=== PATIENT | female | born 1965 | race African-American/Black ===

== ENCOUNTER 2018-08-13 19:18 | Inpatient (IN) | payer BC, MEDICARE, MEDICAID ==
[~2018-08-13] VITALS: Ht 157.5 cm; Wt 68.9 kg
[2018-08-13] MEDS ORDERED: SODIUM CHLORIDE 0.9% 1,000 ML IV ONE (20:06)
[2018-08-13 20:43] LABS: BASOPHILS % 3.6 % (0.0-2.0); EOSINOPHILS % 3.6 % (0.0-5.0); HEMATOCRIT. 37.8 % (36.0-48.0); HEMOGLOBIN. 12.8 g/dL (12.0-16.0); LYMPHOCYTES % 51.2 % (20.0-50.0); MEAN CORPUSCULAR HEMOGLOBIN 34.9 pg (28.0-32.0); MEAN CORPUSCULAR VOLUME 103.4 fL (81.0-99.0); MEAN PLATELET VOLUME 8.5 fl (7.4-10.4); MONOCYTES % 8.5 % (2.0-8.0); NEUTROPHILS % 33.1 % (40.0-76.0); PLATELET 197 x1000/uL (130-400); RED BLOOD CELL COUNT 3.66 mill/uL (4.2-5.4); RED CELL DISTRIBUTION WIDTH 13.4 % (11.6-14.6)
[2018-08-13 20:50] LABS: CHLORIDE 110 mEq/L (98-107)
[2018-08-13 20:52] LABS: PARTIAL THROMBOPLASTIN TIME 29.6 sec (23.4-31.0); PROTHROMBIN TIME 10.3 sec (9.6-11.0)
[2018-08-13 20:58] LABS: CREATINE KINASE 94 IU/L (26-192)
[2018-08-13] MEDS ORDERED: ASPIRIN 81MG TABLET PO ONE (21:00)
[2018-08-13 21:24] LABS: ETHANOL BLOOD 325 mg/dL
[2018-08-13] MEDS ORDERED: POTASSIUM CHLORIDE 20MEQ TABLET SR PO ONE (21:30)
[2018-08-13 23:04] LABS: CLARITY URINE CLEAR (CLEAR); COLOR URINE YELLOW (YELLOW); KETONES URINE NEGATIVE (NEGATIVE); LEUKOCYTE ESTERASE URINE NEGATIVE (NEGATIVE); NITRITE URINE NEGATIVE (NEGATIVE); OCCULT BLOOD URINE NEGATIVE (NEGATIVE); PROTEIN URINE NEGATIVE (NEGATIVE); SPECIFIC GRAVITY URINE 1.006 (1.005-1.030); UROBILINOGEN URINE 0.2 E.U./dL (0.2-1.0)
[2018-08-13 23:13] LABS: *AMPHETAMINES SCREEN URINE NEGATIVE (NEGATIVE); *BARBITURATES SCREEN URINE NEGATIVE (NEGATIVE); *BENZODIAZEPINES SCREEN URINE NEGATIVE (NEGATIVE); CANNABINOID URINE SCREEN NEGATIVE (NEGATIVE); OPIATES URINE SCREEN NEGATIVE (NEGATIVE); PHENCYCLIDINE URINE SCREEN NEGATIVE (NEGATIVE)
[2018-08-13 23:15] LABS: *COCAINE SCREEN URINE NEGATIVE (NEGATIVE); METHADONE URINE SCREEN NEGATIVE (NEGATIVE)
[2018-08-14] MEDS ORDERED: DOCUSATE SODIUM 100MG CAPSULE PO PRN (00:15)
[2018-08-14] MEDS ORDERED: ONDANSETRON HCL 4MG/2ML INJ IV PRN (00:15)
[2018-08-14] MEDS ORDERED: GUAIFENESIN 200MG/10ML SUGAR FREE UDC PO PRN (00:15)
[2018-08-14] MEDS ORDERED: ACETAMINOPHEN 325MG TABLET PO PRN (00:15)
[2018-08-14] MEDS ORDERED: CLONIDINE 0.1MG TABLET PO PRN (00:15)
[2018-08-14 12:20] VITALS: BP 149/59
[2018-08-14] MEDS ORDERED: LORAZEPAM 2MG/ML CPJ IV PRN (12:45)
[2018-08-14] MEDS: AMLODIPINE 10MG TABLET PO SCH (13:01)
[2018-08-14] MEDS: PANTOPRAZOLE SODIUM 40 MG/VIAL IV SCH (13:01)
[2018-08-14] MEDS: ASPIRIN 81MG EC TABLET PO SCH (13:01)
[2018-08-14] MEDS ORDERED: DILT240C3 MT (13:24)
[2018-08-14] MEDS ORDERED: CHOL20004 MT (13:24)
[2018-08-14] MEDS ORDERED: OMEP40CA34 MT (13:24)
[2018-08-14 13:40] LABS: CHLORIDE 105 mEq/L (98-107)
[2018-08-14 16:27] VITALS: BP 124/67
[2018-08-14 20:00] VITALS: BP 151/70
[2018-08-15] VITALS: BP 148/76
[2018-08-15 04:00] VITALS: BP 132/63
[2018-08-15 06:13] LABS: BASOPHILS % 1.6 % (0.0-2.0); EOSINOPHILS % 4.2 % (0.0-5.0); HEMATOCRIT. 38.1 % (36.0-48.0); HEMOGLOBIN. 12.8 g/dL (12.0-16.0); LYMPHOCYTES % 21.3 % (20.0-50.0); MEAN CORPUSCULAR HEMOGLOBIN 34.5 pg (28.0-32.0); MEAN CORPUSCULAR VOLUME 102.4 fL (81.0-99.0); MEAN PLATELET VOLUME 10.8 fl (7.4-10.4); MONOCYTES % 13.9 % (2.0-8.0); PLATELET 145 x1000/uL (130-400); RED BLOOD CELL COUNT 3.72 mill/uL (4.2-5.4); RED CELL DISTRIBUTION WIDTH 13.2 % (11.6-14.6)
[2018-08-15 06:41] LABS: CHLORIDE 101 mEq/L (98-107)
[2018-08-15 06:48] LABS: LDL CHOLESTEROL 111 mg/dL (5-100)
[2018-08-15 06:49] LABS: HDL CHOLESTEROL 100 mg/dL (40-59)
[2018-08-15 08:00] VITALS: BP 139/73
[2018-08-15] MEDS: PANTOPRAZOLE SODIUM 40 MG/VIAL IV SCH (09:46)
[2018-08-15] MEDS: AMLODIPINE 10MG TABLET PO SCH (09:46)
[2018-08-15] MEDS: ASPIRIN 81MG EC TABLET PO SCH (09:46)
[2018-08-15 10:28] VITALS: BP 129/78
[2018-08-15 12:00] VITALS: BP 148/73
[2018-08-16] MEDS ORDERED: FAMOTIDINE 20MG TABLET PO SCH (09:00)
== END 2018-08-15 15:42 | disposition home or self-care (01) | DRG 69 ==
LOC: ER 19:18 → 7WST 21:11 → EDBEDREQTM 21:13 → EDBEDREQ 21:13 → SUPCPDRO 08-14 → ENRESERV 08-14 10:01
PROVIDERS: ADMIT Hospitalist; ATTEND Hospitalist
DX: G45.9 Transient cerebral ischemic attack, unspecified (principal); F10.129 Alcohol abuse with intoxication, unspecified; M34.9 Systemic sclerosis, unspecified; E78.5 Hyperlipidemia, unspecified; K21.9 Gastro-esophageal reflux disease without esophagitis; I10 Essential (primary) hypertension; Y90.8 Blood alcohol level of 240 mg/100 ml or more; Z90.710 Acquired absence of both cervix and uterus; Z88.0 Allergy status to penicillin; Z88.2 Allergy status to sulfonamides
CPT/HCPCS: 36415; 70551; 71045; 80048; 80061; 80305; 80320; 82550; 83721; 83880; 84484; 92610; 93005; 96360; 96361; 97162; 99291; C1893; C9113; J7030; G0480

== ENCOUNTER 2021-01-08 17:53 | Emergency (ER) | payer BC, MEDICARE, MEDICAID ==
[~2021-01-08] VITALS: Ht 157.5 cm; Wt 75.0 kg
[~2021-01-08 17:53] MED LIST: CHOL20004 MT; DILT240C94 MT; OMEP40CA20 MT
[2021-01-08 18:12] VITALS: BP 111/60
[2021-01-08] MEDS ORDERED: ACETAMINOPHEN 325MG TABLET PO ONE (18:45)
== END 2021-01-08 20:10 | disposition home or self-care (01) ==
LOC: ER 17:53
DX: S90.121A Contusion of right lesser toe(s) without damage to nail, initial encounter (principal); W22.8XXA Striking against or struck by other objects, initial encounter; Y93.9 Activity, unspecified; Y92.9 Unspecified place or not applicable; K21.9 Gastro-esophageal reflux disease without esophagitis; Z88.0 Allergy status to penicillin; Z88.2 Allergy status to sulfonamides; Z90.710 Acquired absence of both cervix and uterus
CPT/HCPCS: 73630; 99283; Z7610

== ENCOUNTER 2021-07-29 10:59 | Emergency (ER) | payer BC, MEDICARE, MEDICAID ==
[~2021-07-29] VITALS: Ht 160 cm; Wt 71.0 kg
[2021-07-29] MEDS ORDERED: TRAMADOL 50MG TABLET PO ONE (11:30)
[2021-07-29] MEDS ORDERED: KETOROLAC 60MG/2ML VIAL IM ONE (12:00)
[2021-07-29] MEDS ORDERED: IBUP-2030 MT (12:17)
[2021-07-29] MEDS ORDERED: TRAM50TA3 MT (12:17)
[2021-07-29 12:29] VITALS: BP 124/70
== END 2021-07-29 13:10 | disposition home or self-care (01) ==
LOC: ER 10:59
DX: M65.4 Radial styloid tenosynovitis [de Quervain] (principal); K21.9 Gastro-esophageal reflux disease without esophagitis; Z88.0 Allergy status to penicillin; Z88.2 Allergy status to sulfonamides; Z90.710 Acquired absence of both cervix and uterus
CPT/HCPCS: 29125; 73110; 96372; 99283; J1885

== ENCOUNTER 2022-05-26 17:21 | Emergency (ER) | payer BC, MEDICAID, MEDICARE ==
[~2022-05-26] VITALS: Ht 160 cm; Wt 71.0 kg
[~2022-05-26 17:21] MED LIST changes: +IBUP-2030 MT; +TRAM50TA3 MT
[2022-05-26 17:49] VITALS: BP 122/53
== END 2022-05-26 18:55 | disposition left against medical advice (07) ==
LOC: ER 17:21
DX: Z53.21 Procedure and treatment not carried out due to patient leaving prior to being seen by health care provider (principal); K21.9 Gastro-esophageal reflux disease without esophagitis; Z88.0 Allergy status to penicillin; Z88.2 Allergy status to sulfonamides

== ENCOUNTER 2024-11-30 13:53 | Emergency (ER) | payer MEDICAID ==
[~2024-11-30] VITALS: Ht 160 cm; Wt 63.0 kg
[2024-11-30 14:19] VITALS: O2SAT 99
[2024-11-30] MEDS: KETOROLAC 15MG/ML VIAL IM ONE (15:59)
[2024-11-30] MEDS ORDERED: IBUP-2029 MT (16:51)
[2024-11-30 17:00] VITALS: BP 145/69; PULSE 85; RESP 16; TEMP 37; O2SAT 99
== END 2024-11-30 17:09 | disposition home or self-care (01) ==
LOC: ER 13:53
DX: S92.512A Displaced fracture of proximal phalanx of left lesser toe(s), initial encounter for closed fracture (principal); Z79.899 Other long term (current) drug therapy; Z90.710 Acquired absence of both cervix and uterus; Z88.0 Allergy status to penicillin; Z88.2 Allergy status to sulfonamides; X58.XXXA Exposure to other specified factors, initial encounter; Y93.89 Activity, other specified; Y92.89 Other specified places as the place of occurrence of the external cause; Y99.8 Other external cause status
CPT/HCPCS: 99283; 73660; 96372; J1885